=== PATIENT | female | born 1985 | race American Indian/Alaskan Native ===

== ENCOUNTER 2017-09-06 22:09 | Emergency (ER) | payer MEDICAID ==
[2017-09-07 00:47] VITALS: BP 122/58
--- NOTE | 2017-09-07 04:02 | Emergency Department Report ---
ED ENT HPI - General Chief complaint: Dental/Oral Stated complaint: TOOTHACHE Time Seen by Provider: 09/07/17 04:02 Source: patient Mode of arrival: Ambulatory Limitations: No Limitations - History of Present Illness Initial comments: 32-year-old -[place] female comes in reporting she 17th A gradient to her right ear with right side facial swelling onset 3 days ago. Patient reports that she was seen by her dentist on Monday and Monday on Monday they placed her on penicillin, ibuprofen 800 mg and Tylenol 3. Patient is followed by a close mouth in [place]. She reports that her dentist told her to come in to be evaluated. Patient reports that she is being scheduled for surgery to have her wisdom teeth taken out. She has no known drug allergies. No past medical history. MD complaint: tooth pain -: days(s) (3) Location: tooth # (32) Severity scale (0 -10): 8 Quality: aching Consistency: constant Improves with: none Worsens with: eating Associated Symptoms: gum swelling, toothache. denies: fever, cough, pain with swallowing, sore throat, tinnitus - Related Data Previous Rx's Medication Instructions Recorded Last Taken Type Acetaminophen/Codeine [Tylenol 1 tab PO Q6H PRN #15 tab 10/29/14 Unknown Rx /Codeine # 3 tab] Allergies Allergy/AdvReac Type Severity Reaction Status Date / Time No Known Allergies Allergy Verified 10/21/14 23:00 ED Dental HPI - General Chief complaint: Dental/Oral Stated complaint: TOOTHACHE Time Seen by Provider: 09/07/17 04:02 Source: patient Mode of arrival: Ambulatory Limitations: No Limitations - Related Data Previous Rx's Medication Instructions Recorded Last Taken Type Acetaminophen/Codeine [Tylenol 1 tab PO Q6H PRN #15 tab 10/29/14 Unknown Rx /Codeine # 3 tab] Allergies Allergy/AdvReac Type Severity Reaction Status Date / Time No Known Allergies Allergy Verified 10/21/14 23:00 ED Review of Systems ROS: Stated complaint: TOOTHACHE Other details as noted in HPI Constitutional: denies: chills, fever Eyes: denies: eye pain, eye discharge, vision change ENT: dental pain, other (right side facial swelling) Respiratory: denies: cough, shortness of breath, wheezing Cardiovascular: denies: chest pain, palpitations Endocrine: no symptoms reported Gastrointestinal: denies: abdominal pain, nausea, diarrhea Genitourinary: denies: urgency, dysuria, discharge Musculoskeletal: denies: back pain, joint swelling, arthralgia Skin: denies: rash, lesions Neurological: denies: headache, weakness, paresthesias Psychiatric: denies: anxiety, depression Hematological/Lymphatic: denies: easy bleeding, easy bruising ED Past Medical Hx - Past Medical History Previous Medical History?: Yes Hx Congestive Heart Failure: No Hx Diabetes: No Hx Sickle Cell Disease: No Hx Seizures: Yes (x1 age 4) Hx Kidney Stones: Yes (2009 stones passed) Hx Asthma: No Hx COPD: No - Surgical History Past Surgical History?: Yes Additional Surgical History: tubes tied. - Social History Smoking Status: Never Smoker Substance Use Type: None - Medications Home Medications: Home Medications Medication Instructions Recorded Confirmed Last Taken Type Acetaminophen/Codeine [Tylenol 1 tab PO Q6H PRN #15 tab 10/29/14 Unknown Rx /Codeine # 3 tab] ED Physical Exam - General Limitations: No Limitations General appearance: alert, in no apparent distress - Head Head exam: Present: atraumatic, normocephalic, other (right sided facial edema mostly in the right jaw) - Eye Eye exam: Present: normal appearance - Expanded ENT Exam Expanded Teeth exam: Present: dental tenderness # (32), gingival enlargement - Neck Neck exam: Present: normal inspection, full ROM - Respiratory Respiratory exam: Present: normal lung sounds bilaterally - Cardiovascular Cardiovascular Exam: Present: regular rate - Rectal Rectal exam: Present: deferred - Extremities Exam Extremities exam: Present: normal inspection - Back Exam Back exam: Present: normal inspection - Neurological Exam Neurological exam: Present: alert, oriented X3 - Psychiatric Psychiatric exam: Present: normal affect, normal mood - Skin Skin exam: Present: warm, dry, intact, normal color. Absent: rash ED Course Vital Signs 09/07/17 00:41 Temperature 99.4 F Pulse Rate 64 Respiratory 18 Rate Blood Pressure 122/58 O2 Sat by Pulse 98 Oximetry ED Medical Decision Making - Medical Decision Making Patient has been evaluated by this provider fast track. I discussed with patient that this is most likely due to her tooth pain. That she needs to continue with the penicillin and pain medication as prescribed by her dentist. I discussed the patient we will give her a Toradol injection. Follow-up with her dentist. Patient verbalized understanding. Critical care attestation.: If time is entered above; I have spent that time in minutes in the direct care of this critically ill patient, excluding procedure time. ED Disposition Clinical Impression: Pain, dental Disposition: DC-01 TO HOME OR SELFCARE Is pt being admited?: No Does the pt Need Aspirin: No Condition: Stable Instructions: Toothache (ED) Additional Instructions: Continue with pain medication antibiotic as prescribed by your dentist. Please follow up with her dentist if pain persist or gets worse. You can do warm salt water rinses. You can apply ice to the lower right jaw. Referrals: PRIMARY CARE, [Primary Care Provider] - 3-5 Days Forms: Work/School Release Form(ED)
[2017-09-07] MEDS ORDERED: TORADOL IM ONE (05:33)
== END 2017-09-07 05:50 | disposition home or self-care (01) ==
LOC: ED 22:09
DX: K08.89 Other specified disorders of teeth and supporting structures (principal)
CPT/HCPCS: 96372; 99282; J1885

== ENCOUNTER 2018-08-01 15:36 | Emergency (ER) | payer MEDICAID, OTHER ==
[2018-08-01 15:58] VITALS: BP 122/70
--- NOTE | 2018-08-01 16:00 | Emergency Department Report ---
Blank Doc - Documentation Documentation: C/O vomiting that started around 3 am. Has abd pain with one episode of diarrh ea. PMH none UTD Followed by [facility]. Postive sick contact. This initial assessment diagnostic orders/clinical plan/treatment (s) is/Are subject change based on patient's health status, clinical progression and re- assessment by fellow clinical providers in the ED. Further treatment and work-up at subsequent clinical providers discretion. Patient/guardians urged not to elope from s their condition may be serious if not clinically assessed and managed. Inital order include: Septic protocol
[2018-08-01 16:33] LABS: Basophils % (Auto) 0.1 % (0.0-1.8); Eosinophils % (Auto) 0.1 % (0.0-4.3); Hematocrit 39.2 % (30.3-42.9); Hemoglobin 13.4 gm/dl (10.1-14.3); Lymphocytes # (Auto) 0.7 K/mm3 (1.2-5.4); Lymphocytes % (Auto) 5.5 % (13.4-35.0); Mean Corpuscular HGB Conc 34 % (30-34); Mean Corpuscular Volume 94 fl (79-97); Monocytes # (Auto) 0.6 K/mm3 (0.0-0.8); Monocytes % (Auto) 4.6 % (0.0-7.3); Platelet Count 310 K/mm3 (140-440); Red Blood Count 4.19 M/mm3 (3.65-5.03); Red Cell Distribution Width 13.1 % (13.2-15.2)
[2018-08-01 16:57] LABS: Alanine Aminotransferase 25 units/L (7-56); Albumin 4.1 g/dL (3.9-5); BUN/Creatinine Ratio 23; Blood Urea Nitrogen 16 mg/dL (7-17); Calcium 8.8 mg/dL (8.4-10.2); Hemolysis Index 18
[2018-08-01] MEDS ORDERED: ZOFRAN IV STA (18:21)
[2018-08-01] MEDS ORDERED: NACL 0.9% 1000 ML 1,000 ML IV ONE ×2 (18:21→21:59)
--- NOTE | 2018-08-01 18:29 | Emergency Department Report ---
ED N/V/D HPI - General Chief complaint: Nausea/Vomiting/Diarrhea Stated complaint: VOMIT SINCE 3AM Time Seen by Provider: 08/01/18 15:53 Source: patient Mode of arrival: Ambulatory Limitations: No Limitations - History of Present Illness Initial comments: 33-year-old obese female to emergency department complaining of abdominal pain, nausea, vomiting that started on yesterday after eating at check[employer]. She her son and her daughter all ate from the same check[employer] and all had the same symptoms. Pain is dull aches, pains and cramps 2 to the abdomen. Associated frequent bouts of diarrhea and vomiting when trying to 2 drink or eat. No fever, chills, sweats, chest pain, palpitations, presyncope, neck pain, rashes. No trauma noted. MD complaint: nausea, vomiting, diarrhea -: Gradual Associated Abdominal Pain: No Location: diffuse Radiation: none Severity: mild Quality: cramping, aching Consistency: constant Improves with: none Worsens with: none Context: sick contacts Associated Symptoms: denies other symptoms, nausea/vomiting. denies: chest pain, cough, diaphoresis - Related Data Previous Rx's Medication Instructions Recorded Last Taken Type Acetaminophen/Codeine [Tylenol 1 tab PO Q6H PRN #15 tab 10/29/14 Unknown Rx /Codeine # 3 tab] hydrOXYzine HCL [Atarax] 25 mg PO Q6HR PRN #20 tablet 04/02/18 Unknown Rx predniSONE [Deltasone] 20 mg PO QDAY #5 tab 04/02/18 Unknown Rx Hyoscyamine Subl [Levsin Sl 0.125 0.125 mg SL Q4HR PRN #20 tablet 08/01/18 Unknown Rx TAB] Ondansetron [Zofran ODT TAB] 8 mg PO Q8HR #14 tab.rapdis 08/01/18 Unknown Rx Allergies Allergy/AdvReac Type Severity Reaction Status Date / Time No Known Allergies Allergy Verified 10/21/14 23:00 ED Review of Systems ROS: Stated complaint: VOMIT SINCE 3AM Other details as noted in HPI Constitutional: denies: chills, fever Eyes: denies: eye pain, eye discharge, vision change ENT: denies: ear pain, throat pain Respiratory: denies: cough, shortness of breath, wheezing Cardiovascular: denies: chest pain, palpitations Endocrine: no symptoms reported Gastrointestinal: nausea, vomiting, diarrhea. denies: abdominal pain Genitourinary: denies: urgency, dysuria, discharge Musculoskeletal: denies: back pain, joint swelling, arthralgia Skin: denies: rash, lesions Neurological: denies: headache, weakness, paresthesias Psychiatric: denies: anxiety, depression Hematological/Lymphatic: denies: easy bleeding, easy bruising ED Past Medical Hx - Past Medical History Hx Congestive Heart Failure: No Hx Diabetes: No Hx Sickle Cell Disease: No Hx Seizures: Yes (x1 age 4) Hx Kidney Stones: Yes (2009 stones passed) Hx Asthma: No Hx COPD: No - Surgical History Additional Surgical History: tubes tied. - Social History Smoking Status: Never Smoker Substance Use Type: None - Medications Home Medications: Home Medications Medication Instructions Recorded Confirmed Last Taken Type Acetaminophen/Codeine [Tylenol 1 tab PO Q6H PRN #15 tab 10/29/14 Unknown Rx /Codeine # 3 tab] hydrOXYzine HCL [Atarax] 25 mg PO Q6HR PRN #20 tablet 04/02/18 Unknown Rx predniSONE [Deltasone] 20 mg PO QDAY #5 tab 04/02/18 Unknown Rx Hyoscyamine Subl [Levsin Sl 0.125 0.125 mg SL Q4HR PRN #20 tablet 08/01/18 Unknown Rx TAB] Ondansetron [Zofran ODT TAB] 8 mg PO Q8HR #14 tab.rapdis 08/01/18 Unknown Rx ED Physical Exam - General Limitations: No Limitations General appearance: alert, in no apparent distress - Head Head exam: Present: atraumatic, normocephalic - Eye Eye exam: Present: normal appearance - ENT ENT exam: Present: mucous membranes moist - Neck Neck exam: Present: normal inspection - Respiratory Respiratory exam: Present: normal lung sounds bilaterally. Absent: respiratory distress - Cardiovascular Cardiovascular Exam: Present: regular rate, normal rhythm. Absent: systolic murmur, diastolic murmur, rubs, gallop - GI/Abdominal GI/Abdominal exam: Present: soft, tenderness (mild and general. ), normal bowel sounds. Absent: distended, guarding, rebound, rigid, organomegaly, mass, bruit, pulsatile mass, hernia - Extremities Exam Extremities exam: Present: normal inspection - Back Exam Back exam: Present: normal inspection - Neurological Exam Neurological exam: Present: alert, oriented X3 - Psychiatric Psychiatric exam: Present: normal affect, normal mood - Skin Skin exam: Present: warm, dry, intact, normal color. Absent: rash ED Course Vital Signs 08/01/18 08/01/18 08/01/18 15:54 18:34 18:49 Temperature 101.7 F H 101.1 F H Pulse Rate 122 H Respiratory 18 16 Rate Blood Pressure 122/70 O2 Sat by Pulse 100 Oximetry 08/01/18 21:21 Temperature 99.2 F Pulse Rate 118 H Respiratory 17 Rate Blood Pressure O2 Sat by Pulse 98 Oximetry ED Medical Decision Making - Lab Data Result diagrams: 08/01/18 16:13 08/01/18 16:13 - Medical Decision Making Miscellaneous disability since symptoms after having a check[employer] hamburger very likely that she does have some type of a contaminant involved in her 6 purse symptomology. Very likely to be of a viral viral ordered or even at adenovirus or norovirus virus. There is no bloody diarrhea and she appears to be very comfortable. Feels much better after the fluids and can tolerate orals. Advised her to continue to manage these symptoms and if it does continue outside of 3 days or she develops bloody stools or pain to return to the emergency department. Critical care attestation.: If time is entered above; I have spent that time in minutes in the direct care of this critically ill patient, excluding procedure time. ED Disposition Clinical Impression: Vomiting, Diarrhea Disposition: DC-01 TO HOME OR SELFCARE Is pt being admited?: No Does the pt Need Aspirin: No Condition: Stable Instructions: Gastroenteritis (ED), Food Poisoning (ED), Acute Nausea and Vomiting (ED) Prescriptions: Hyoscyamine Subl [Levsin Sl 0.125 TAB] 0.125 mg SL Q4HR PRN #20 tablet PRN Reason: Spasms Ondansetron [Zofran ODT TAB] 8 mg PO Q8HR #14 tab.terrence Referrals: [facility] VERONICA [Primary Care Provider] - 3-5 Days [facility] [Provider Group] - 3-5 Days
[2018-08-01 20:11] LABS: Bilirubin,Urine NEG (Negative); Blood,Urine NEG (Negative); Color,Urine Yellow (Yellow); Mucus,Urine FEW /HPF; Protein,Urine <15 mg/dL mg/dL (Negative)
[2018-08-01] MEDS ORDERED: NACL 0.9% 1000 ML 1,000 ML ONE (21:50)
[2018-08-01] MEDS ORDERED: TYLENOL ONE (21:58)
[2018-08-01] MEDS ORDERED: TYLENOL PO ONE (21:59)
== END 2018-08-01 23:55 | disposition home or self-care (01) ==
LOC: ED 15:36
DX: R10.84 Generalized abdominal pain (principal); R11.2 Nausea with vomiting, unspecified; R19.7 Diarrhea, unspecified
CPT/HCPCS: 36415; 80053; 81001; 85025; 86850; 86900; 86901; 96361; 96374; 99283; J2405; J7030

== ENCOUNTER 2018-08-08 17:18 | Emergency (ER) | payer OTHER ==
[2018-08-08 17:33] VITALS: BP 123/62
--- NOTE | 2018-08-08 17:33 | Emergency Department Report ---
Blank Doc - Documentation Documentation: This is a 33-year-old female that presents with abdominal pain in the umbilical area. Patient also stated abdominal distention. Denies any n/v. This initial assessment/diagnostic orders/clinical plan/treatment(s) is/are subject to change based on patient's health status, clinical progression and re- assessment by fellow clinical providers in the ED. Further treatment and workup at subsequent clinical providers discretion. Patient/guardians urged not to elope from the ED as their condition may be serious if not clinically assessed and managed. Initial orders include: 1- Patient sent to [facility] for further evaluation and treatment 2- Labs 3- UA
[2018-08-08 18:07] LABS: Basophils # (Auto) 0.1 K/mm3 (0.0-0.1); Basophils % (Auto) 0.7 % (0.0-1.8); Eosinophils # (Auto) 0.1 K/mm3 (0.0-0.4); Eosinophils % (Auto) 0.6 % (0.0-4.3); Hemoglobin 13.1 gm/dl (10.1-14.3); Lymphocytes # (Auto) 2.6 K/mm3 (1.2-5.4); Lymphocytes % (Auto) 21.8 % (13.4-35.0); Monocytes # (Auto) 0.7 K/mm3 (0.0-0.8); Monocytes % (Auto) 6.1 % (0.0-7.3)
[2018-08-08 18:11] LABS: Bilirubin,Urine NEG (Negative); Color,Urine Yellow (Yellow)
[2018-08-08 18:12] LABS: Amorphous Crystals,Urine Few; Bacteria,Urine 1+ /HPF (Negative); Blood,Urine NEG (Negative); Mucus,Urine FEW /HPF; Protein,Urine <15 mg/dL mg/dL (Negative)
[2018-08-08 18:20] LABS: HCG Qualitative,Urine Negative (Negative)
[2018-08-08 18:24] LABS: Hematocrit 39.4 % (30.3-42.9); Mean Corpuscular HGB Conc 33 % (30-34); Mean Corpuscular Volume 94 fl (79-97); Platelet Count 350 K/mm3 (140-440)
[2018-08-08 18:27] LABS: Alanine Aminotransferase 28 units/L (7-56); Albumin 4.2 g/dL (3.9-5); BUN/Creatinine Ratio 19; Blood Urea Nitrogen 13 mg/dL (7-17); Calcium 9.5 mg/dL (8.4-10.2); Hemolysis Index 4
[2018-08-08 18:28] LABS: Bilirubin,Direct < 0.2 mg/dL (0-0.2)
== END 2018-08-08 19:15 | disposition left against medical advice (07) ==
LOC: ED 17:18
DX: R10.33 Periumbilical pain (principal)
CPT/HCPCS: 36415; 80048; 80076; 81001; 81025; 83690; 85025

== ENCOUNTER 2019-03-26 17:30 | Emergency (ER) | payer MEDICAID, OTHER ==
--- NOTE | 2019-03-26 18:23 | Event Note ---
ED Screening Note Date of service: 03/26/19 Time: 18:22 ED Screening Note: This is a 33 y.o. F. that presents to the ER with right sided dental pain. Patient states she recently completed antibiotics and pain medication prescribed by dentist for dental abscess and wisdom tooth. States she have a follow up appointment with them on 04/11/2019 but can't tolerate the pain. This initial assessment/diagnostic orders/clinical plan/treatment(s) is/are subject to change based on patients health status, clinical progression and re- assessment by fellow clinical providers in the ED. Further treatment and workup at subsequent clinical providers discretion. Patient/guardian urged not to elope from the ED as their condition may be serious if not clinically assessed and managed. Initial orders include:
[2019-03-26] MEDS ORDERED: TORADOL IM ONE (19:45)
--- NOTE | 2019-03-26 19:48 | Emergency Department Report ---
ED ENT HPI - General Chief complaint: Dental/Oral Stated complaint: TOOTHACHE/FACE SWOLLEN Time Seen by Provider: 03/26/19 18:19 Source: patient Mode of arrival: Ambulatory Limitations: No Limitations - History of Present Illness Initial comments: 33-year-old female with right-sided toothache 2 weeks. Patient states she has seen a dentist, has been taking antibiotics for 2 weeks and has follow-up appointment have teeth pulled in 2 weeks, on April 11. She states she was given pain medication as well, however it is not helping. Patient denies fever. Patient requesting pain medication. MD complaint: tooth pain -: week(s) (2) Location: tooth # (30 and 32) Severity: moderate Quality: aching Consistency: constant Improves with: none Worsens with: eating, other (palpation) Context- Dental: history of dental caries, poor dental care Associated Symptoms: toothache. denies: fever, sore throat - Related Data Previous Rx's Medication Instructions Recorded Last Taken Type Acetaminophen/Codeine [Tylenol 1 tab PO Q6H PRN #15 tab 10/29/14 Unknown Rx /Codeine # 3 tab] hydrOXYzine HCL [Atarax] 25 mg PO Q6HR PRN #20 tablet 04/02/18 Unknown Rx predniSONE [Deltasone] 20 mg PO QDAY #5 tab 04/02/18 Unknown Rx Hyoscyamine Subl [Levsin Sl 0.125 0.125 mg SL Q4HR PRN #20 tablet 08/01/18 Unknown Rx TAB] Ondansetron [Zofran ODT TAB] 8 mg PO Q8HR #14 tab.rapdis 08/01/18 Unknown Rx Naproxen [Naprosyn] 500 mg PO BID #20 tablet 03/26/19 Unknown Rx traMADol [Ultram] 50 mg PO Q6HR PRN #7 tablet 03/26/19 Unknown Rx Allergies Allergy/AdvReac Type Severity Reaction Status Date / Time No Known Allergies Allergy Verified 10/21/14 23:00 ED Dental HPI - General Chief complaint: Dental/Oral Stated complaint: TOOTHACHE/FACE SWOLLEN Time Seen by Provider: 03/26/19 18:19 Source: patient Mode of arrival: Ambulatory Limitations: No Limitations - Related Data Previous Rx's Medication Instructions Recorded Last Taken Type Acetaminophen/Codeine [Tylenol 1 tab PO Q6H PRN #15 tab 10/29/14 Unknown Rx /Codeine # 3 tab] hydrOXYzine HCL [Atarax] 25 mg PO Q6HR PRN #20 tablet 04/02/18 Unknown Rx predniSONE [Deltasone] 20 mg PO QDAY #5 tab 04/02/18 Unknown Rx Hyoscyamine Subl [Levsin Sl 0.125 0.125 mg SL Q4HR PRN #20 tablet 08/01/18 Unknown Rx TAB] Ondansetron [Zofran ODT TAB] 8 mg PO Q8HR #14 tab.rapdis 08/01/18 Unknown Rx Naproxen [Naprosyn] 500 mg PO BID #20 tablet 03/26/19 Unknown Rx traMADol [Ultram] 50 mg PO Q6HR PRN #7 tablet 03/26/19 Unknown Rx Allergies Allergy/AdvReac Type Severity Reaction Status Date / Time No Known Allergies Allergy Verified 10/21/14 23:00 ED Review of Systems ROS: Stated complaint: TOOTHACHE/FACE SWOLLEN Other details as noted in HPI Comment: All other systems reviewed and negative Constitutional: denies: chills, fever ENT: dental pain. denies: throat pain Gastrointestinal: denies: vomiting ED Past Medical Hx - Past Medical History Previous Medical History?: Yes Hx Congestive Heart Failure: No Hx Diabetes: No Hx Sickle Cell Disease: No Hx Seizures: Yes (x1 age 4) Hx Kidney Stones: Yes (2009 stones passed) Hx Asthma: No Hx COPD: No - Surgical History Past Surgical History?: Yes Additional Surgical History: tubal ligation - Social History Smoking Status: Never Smoker Substance Use Type: None - Medications Home Medications: Home Medications Medication Instructions Recorded Confirmed Last Taken Type Acetaminophen/Codeine [Tylenol 1 tab PO Q6H PRN #15 tab 10/29/14 Unknown Rx /Codeine # 3 tab] hydrOXYzine HCL [Atarax] 25 mg PO Q6HR PRN #20 tablet 04/02/18 Unknown Rx predniSONE [Deltasone] 20 mg PO QDAY #5 tab 04/02/18 Unknown Rx Hyoscyamine Subl [Levsin Sl 0.125 0.125 mg SL Q4HR PRN #20 tablet 08/01/18 Unknown Rx TAB] Ondansetron [Zofran ODT TAB] 8 mg PO Q8HR #14 tab.rapdis 08/01/18 Unknown Rx Naproxen [Naprosyn] 500 mg PO BID #20 tablet 03/26/19 Unknown Rx traMADol [Ultram] 50 mg PO Q6HR PRN #7 tablet 03/26/19 Unknown Rx ED Physical Exam - General Limitations: No Limitations General appearance: alert, in no apparent distress - Head Head exam: Present: atraumatic, normocephalic - Eye Eye exam: Present: normal appearance - ENT ENT exam: Present: other (diffuse caries noted, teeth #30 and 32 tender to percussion; calm and slightly swollen adjacent to tooth #30; no significant facial swelling noted, no submental or submandibular induration present, no signs of Asif's angina present) - Neck Neck exam: Present: normal inspection. Absent: lymphadenopathy - Respiratory Respiratory exam: Present: normal lung sounds bilaterally. Absent: respiratory distress - Cardiovascular Cardiovascular Exam: Present: regular rate, normal rhythm - GI/Abdominal GI/Abdominal exam: Absent: distended - Extremities Exam Extremities exam: Present: normal inspection - Neurological Exam Neurological exam: Present: alert, oriented X3 - Psychiatric Psychiatric exam: Present: normal affect, normal mood - Skin Skin exam: Present: warm, dry, intact, normal color ED Course Vital Signs 03/26/19 17:44 Temperature 98.5 F Pulse Rate 81 Respiratory 16 Rate Blood Pressure 143/61 O2 Sat by Pulse 100 Oximetry ED Medical Decision Making - Medical Decision Making Vitals are normal. No signs of Asif angina present. Dental caries present on exam, teeth are tender to percussion. Patient has already been on a course of antibiotics. Toradol given here in ED. Patient advised to follow up with dentist as scheduled. Return precautions given. - Differential Diagnosis toothache, dental caries, periapical abscess Critical care attestation.: If time is entered above; I have spent that time in minutes in the direct care of this critically ill patient, excluding procedure time. ED Disposition Clinical Impression: Dentalgia Disposition: - TO HOME OR SELFCARE Is pt being admited?: No Condition: Stable Instructions: Dental Caries (ED), Toothache (ED) Referrals: [facility] [Outside] - 3-5 Days Time of Disposition: 19:51
[2019-03-26 20:41] VITALS: BP 130/88
== END 2019-03-26 20:41 | disposition home or self-care (01) ==
LOC: ED 17:30
DX: K08.89 Other specified disorders of teeth and supporting structures (principal); Z98.51 Tubal ligation status; Z79.899 Other long term (current) drug therapy
CPT/HCPCS: 96372; 99282; J1885

== ENCOUNTER 2020-05-15 21:47 | Emergency (ER) | payer MEDICAID ==
[2020-05-16] MEDS ORDERED: ACETAMINOPHEN 325 MG TAB PO ONE (04:39)
--- NOTE | 2020-05-16 04:54 | XRay Report ---
CHEST 2 VIEWS, 05/16/2020 3:40 AM INDICATION: Cough COMPARISON: None FINDINGS: Support devices: None. Heart: The cardiac silhouette is normal in size. Lungs/pleura: There is faint opacity at the left lateral lung base. The right lung appears grossly cl ear. Additional findings: No significant acute abnormality. IMPRESSION: 1. Faint opacity at the left lateral lung base concerning for a developing infiltrate. Signer Name: Anastasia Joseph MD Signed: 05/16/2020 4:49 AM Workstation Name: [id number]
[2020-05-16] MEDS ORDERED: cefTRIAXone/NS 1 GM/50 ML 1 GM/50 ML BAG IV ONE (05:03)
[2020-05-16] MEDS ORDERED: IBUPROFEN 600 MG TAB PO ONE (05:03)
[2020-05-16] MEDS ORDERED: AZITHROMYCIN 250 MG TAB PO ONE (05:03)
[2020-05-16] MEDS ORDERED: SODIUM CHLORIDE 0.9% 1000 ML 1,000 ML IV ONE (05:03)
[2020-05-16 05:26] LABS: Blood Urea Nitrogen 14 mg/dL (7-17); Calcium 8.8 mg/dL (8.4-10.2); Hemolysis Index 16
[2020-05-16 05:36] LABS: Alanine Aminotransferase 79 units/L (7-56); Albumin 4.2 g/dL (3.9-5)
[2020-05-16 05:38] LABS: BUN/Creatinine Ratio 20
[2020-05-16 05:38] LABS: Bilirubin,Direct < 0.2 mg/dL (0-0.2)
[2020-05-16 05:48] LABS: Basophils % (Auto) 0.1 % (0.0-1.8); Hematocrit 35.9 % (30.3-42.9); Hemoglobin 11.8 gm/dl (10.1-14.3); Lymphocytes # (Auto) 1.5 K/mm3 (1.2-5.4); Lymphocytes % (Auto) 20.7 % (13.4-35.0); Mean Corpuscular HGB Conc 33 % (30-34); Mean Corpuscular Volume 92 fl (79-97); Monocytes # (Auto) 0.7 K/mm3 (0.0-0.8); Monocytes % (Auto) 9.3 % (0.0-7.3); Platelet Count 237 K/mm3 (140-440); Red Cell Distribution Width 13.2 % (13.2-15.2)
--- NOTE | 2020-05-16 07:13 | Emergency Department Report ---
<LAKESHIA MONTEIRO - Last Filed: 05/16/20 07:09> - General Chief Complaint: Fever Stated Complaint: COUGH Source: patient Mode of arrival: Ambulatory Limitations: No Limitations - History of Present Illness Initial Comments: Patient is a 34-year-old -[place] female with a history of kidney stones and pediatric seizure who presents to the ED with complaint of acute onset persistent nasal and sinus congestion, persistent diffuse body aches and pains, persistent dry cough for the last 1 week. Patient also complains of subjective fever and chills for the last 24 hours. Patient states that her children have had similar symptoms. Patient states that she has been taking [id number] medications with no relief. Patient denies dizziness, syncope, chest pain, shortness of breath, nausea, vomiting, diarrhea, abdominal pain, back pain, dysuria, urinary frequency and urgency, change in vision, palpitations or seizures. MD Complaint: fever, cough, rhinorrhea, nasal congestion, sinus pain -: Sudden, week(s) (1) Severity: severe Severity scale (0 -10): 7 Quality: sharp, aching Consistency: constant Improves With: nothing Worsens With: nothing Context: sick contacts (Family members with similar symptoms but mild) Associated Symptoms: denies other symptoms, fever, chills, myalgias, headache, rhinorrhea, nasal congestion, cough. denies: stiff neck, chest pain, abdominal pain, nausea, diarrhea, dysuria, rash, confusion, right sweats, weight loss, epistaxis, ear pain, other Treatments Prior to Arrival: none - Related Data Previous Rx's Medication Instructions Recorded Last Taken Type Acetaminophen/Codeine [Tylenol 1 tab PO Q6H PRN #15 tab 10/29/14 Unknown Rx /Codeine # 3 tab] hydrOXYzine HCL [Atarax] 25 mg PO Q6HR PRN #20 tablet 04/02/18 Unknown Rx predniSONE [Deltasone] 20 mg PO QDAY #5 tab 04/02/18 Unknown Rx Hyoscyamine Subl [Levsin Sl 0.125 0.125 mg SL Q4HR PRN #20 tablet 08/01/18 Unknown Rx TAB] Ondansetron [Zofran ODT TAB] 8 mg PO Q8HR #14 tab.rapdis 08/01/18 Unknown Rx Naproxen [Naprosyn] 500 mg PO BID #20 tablet 03/26/19 Unknown Rx traMADoL [Ultram] 50 mg PO Q6HR PRN #7 tablet 03/26/19 Unknown Rx Acetaminophen [Tylenol] 500 mg PO Q6HR PRN #30 tablet 05/16/20 Unknown Rx Albuterol Sulfate [Proventil Hfa] 1 - 2 puff IH Q6H PRN #1 hfa.aer.ad 05/16/20 Unknown Rx Azithromycin [Zithromax Z-WES] 250 mg PO DAILY #6 tablet 05/16/20 Unknown Rx Benzonatate [Tessalon Perles] 100 mg PO Q8HR #30 capsule 05/16/20 Unknown Rx Sulfamethoxazole/Trimethoprim 1 each PO BID 5 Days #10 tablet 05/16/20 Unknown Rx [Bactrim DS TAB] methylPREDNISolone [Medrol 4MG 4 mg PO DAILY #21 tab.ds.pk 05/16/20 Unknown Rx DOSEPAK (21 tabs)] Allergies Allergy/AdvReac Type Severity Reaction Status Date / Time No Known Allergies Allergy Verified 10/21/14 23:00 ED Review of Systems Constitutional: chills, fever, malaise Eyes: denies: eye pain, eye discharge, vision change ENT: congestion. denies: ear pain, throat pain Respiratory: cough. denies: shortness of breath, wheezing Cardiovascular: denies: chest pain, palpitations Endocrine: no symptoms reported Gastrointestinal: denies: abdominal pain, nausea, vomiting, diarrhea Genitourinary: denies: urgency, dysuria, discharge Musculoskeletal: arthralgia, myalgia. denies: back pain, joint swelling Skin: denies: rash, lesions Neurological: headache. denies: weakness, paresthesias Psychiatric: denies: anxiety, depression Hematological/Lymphatic: denies: easy bleeding, easy bruising ED Past Medical Hx - Past Medical History Previous Medical History?: Yes Hx Congestive Heart Failure: No Hx Diabetes: No Hx Sickle Cell Disease: No Hx Seizures: Yes (x1 age 4) Hx Kidney Stones: Yes (2009 stones passed) Hx Asthma: No Hx COPD: No - Surgical History Past Surgical History?: Yes Additional Surgical History: tubal ligation - Social History Smoking Status: Never Smoker Substance Use Type: Alcohol - Medications Home Medications: Home Medications Medication Instructions Recorded Confirmed Last Taken Type Acetaminophen/Codeine [Tylenol 1 tab PO Q6H PRN #15 tab 10/29/14 Unknown Rx /Codeine # 3 tab] hydrOXYzine HCL [Atarax] 25 mg PO Q6HR PRN #20 tablet 04/02/18 Unknown Rx predniSONE [Deltasone] 20 mg PO QDAY #5 tab 04/02/18 Unknown Rx Hyoscyamine Subl [Levsin Sl 0.125 0.125 mg SL Q4HR PRN #20 tablet 08/01/18 Unknown Rx TAB] Ondansetron [Zofran ODT TAB] 8 mg PO Q8HR #14 tab.rapdis 08/01/18 Unknown Rx Naproxen [Naprosyn] 500 mg PO BID #20 tablet 03/26/19 Unknown Rx traMADoL [Ultram] 50 mg PO Q6HR PRN #7 tablet 03/26/19 Unknown Rx Acetaminophen [Tylenol] 500 mg PO Q6HR PRN #30 tablet 05/16/20 Unknown Rx Albuterol Sulfate [Proventil Hfa] 1 - 2 puff IH Q6H PRN #1 hfa.aer.ad 05/16/20 Unknown Rx Azithromycin [Zithromax Z-WES] 250 mg PO DAILY #6 tablet 05/16/20 Unknown Rx Benzonatate [Tessalon Perles] 100 mg PO Q8HR #30 capsule 05/16/20 Unknown Rx Sulfamethoxazole/Trimethoprim 1 each PO BID 5 Days #10 tablet 05/16/20 Unknown Rx [Bactrim DS TAB] methylPREDNISolone [Medrol 4MG 4 mg PO DAILY #21 tab.ds.pk 05/16/20 Unknown Rx DOSEPAK (21 tabs)] ED Physical Exam - General Limitations: No Limitations General appearance: alert, in no apparent distress, other (Febrile and tachycardic) - Head Head exam: Present: atraumatic, normocephalic, normal inspection - Eye Eye exam: Present: normal appearance, PERRL, EOMI Pupils: Present: normal accommodation - ENT ENT exam: Present: normal orophraynx, mucous membranes moist, TM's normal bilaterally, normal external ear exam, other (Grossly congested nasal passages, palpable frontal sinus tenderness) - Neck Neck exam: Present: normal inspection, full ROM - Respiratory Respiratory exam: Present: rales (Left lower lobe), rhonchi (Left lower lobe). Absent: respiratory distress, wheezes, stridor, chest wall tenderness, accessory muscle use, decreased breath sounds, prolonged expiratory - Cardiovascular Cardiovascular Exam: Present: normal rhythm, tachycardia. Absent: systolic murmur, diastolic murmur, rubs, gallop - GI/Abdominal GI/Abdominal exam: Present: soft, normal bowel sounds. Absent: tenderness, guarding, rebound, hyperactive bowel sounds, hypoactive bowel sounds, organomegaly - Extremities Exam Extremities exam: Present: normal inspection, full ROM, normal capillary refill - Back Exam Back exam: Present: normal inspection, full ROM. Absent: tenderness, CVA tenderness (R), CVA tenderness (L), muscle spasm, paraspinal tenderness, vertebral tenderness - Neurological Exam Neurological exam: Present: alert, oriented X3, CN II-XII intact, normal gait, reflexes normal - Psychiatric Psychiatric exam: Present: normal affect, normal mood - Skin Skin exam: Present: warm, dry, intact, normal color. Absent: rash ED Medical Decision Making - Lab Data Result diagrams: 05/16/20 04:37 05/16/20 04:37 - Radiology Data Radiology results: report reviewed, image reviewed Findings [address] [address] XRay Report Signed Patient: FITZ CHRISTIANSON MR#: [id number] : 1985 Acct:[id number] Age/Sex: 34 / F ADM Date: 05/15/20 Loc: ED Attending Dr: Ordering Physician: CONRADO MARLEY MD Date of Service: 05/16/20 Procedure(s): XR chest routine 2V Accession Number(s): [id number] cc: ED MD AYAKA Fluoro Time In Minutes: CHEST 2 VIEWS, 05/16/2020 3:40 AM INDICATION: Cough COMPARISON: None FINDINGS: Support devices: None. Heart: The cardiac silhouette is normal in size. Lungs/pleura: There is faint opacity at the left lateral lung base. The right lung appears grossly clear. Additional findings: No significant acute abnormality. IMPRESSION: 1. Faint opacity at the left lateral lung base concerning for a developing in filtrate. Signer Name: Anastasia Joseph MD Signed: 05/16/2020 4:49 AM Workstation Name: [id number] Transcribed By: EB Dictated By: Anastasia Joseph MD Electronically Authenticated By: Anastasia Joseph MD Signed Date/Time: 05/16/20448 DD/ 7 TD/TT: - Medical Decision Making This is a 34-year-old -Q[place] female with a history of kidney stones and pediatric seizure who presents to the ED with complaint of acute onset pers istent nasal and sinus congestion, persistent diffuse body aches and pains, persistent dry cough for the last 1 week. Patient also complains of subjective fever and chills for the last 24 hours. Patient states that her children have had similar symptoms. Patient states that she has been taking [id number]-[id number]-[id number] medications with no relief. In the ED, patient is alert and oriented x3 and is not in distress but tachycardic and febrile in triage. Patient was treated for fever in the ED and chest x-ray shows a faint opacity at the left lateral lung base concerning for a developing infiltrate. Lab test results were reviewed and are all nonactionable except for transaminitis of ALT 79 and AST 62. Urinalysis and rapid strep and influenza tests are pending. Patient was treated for community-acquired pneumonia in the ED initially with Rocephin 1 g IV x1 and azithromycin 500 mg p.o. x1. On reevaluation, patient's tachycardia and fever resolved with medications. Patient care was transferred to Ms. Quincy Byrd NP at shift change at 0700 hrs. She shall review all lab test results and dis position the patient appropriately. - Differential Diagnosis Pneumonia; bronchitis; URI; influenza; COVID-19; strep pharyngitis; UTI ED Disposition Clinical Impression: Fever and chills, Community acquired pneumonia of left lower lobe of lung, Acute upper respiratory infection, Left lower lobe pulmonary infiltrate UTI (urinary tract infection) Qualifiers: Urinary tract infection type: acute cystitis Hematuria presence: with hematuria Qualified Code(s): N30.01 - Acute cystitis with hematuria Disposition: TO HOME OR SELFCARE Is pt being admited?: No Does the pt Need Aspirin: No Condition: Stable Instructions: Cough, Adult, Khis-gp-Odxv, Urinary Tract Infection, Adult, Ghfp-sd-Aefq, Upper Respiratory Infection, Adult, Unbh-nn-Ywap, Fever, Adult, Cvvo-kh-Uiyh, Community-Acquired Pneumonia, Adult, Uofm-ym-Jyfu, Bacterial Pneumonia (ED) Additional Instructions: Lab test results were reviewed and are all nonactionable except for slightly elevated transaminitis. Chest x-ray shows left lower lobe infiltrate consistent with community-acquired pneumonia. Therefore take medications with food, drink plenty of fluids and follow-up with your primary care physician in 5 to 7 days for reevaluation. Return to the ED immediately if symptoms get worse. Also consider getting a Covid test refer to the pamphlet with areas that she can get Covid testing Prescriptions: Acetaminophen [Tylenol] 500 mg PO Q6HR PRN #30 tablet PRN Reason: Pain , Severe (7-10) Sulfamethoxazole/Trimethoprim [Bactrim DS TAB] 1 each PO BID 5 Days #10 tablet methylPREDNISolone [Medrol 4MG DOSEPAK (21 tabs)] 4 mg PO DAILY #21 tab.ds.pk Albuterol Sulfate [Proventil Hfa] 1 - 2 puff IH Q6H PRN #1 hfa.aer.ad PRN Reason: Dyspnea Benzonatate [Tessalon Perles] 100 mg PO Q8HR #30 capsule Azithromycin [Zithromax Z-WES] 250 mg PO DAILY #6 tablet Referrals: [facility] [Provider Group] - 3-5 Days YANDEL JEREZ MD [Staff Physician] - 3-5 Days Time of Disposition: 07:19 Print Language: MALTESE <QUINCY BYRD - Last Filed: 05/16/20 08:48> ED Review of Systems ROS: Stated complaint: COUGH Other details as noted in HPI ED Course Vital Signs 05/16/20 04:01 Temperature 102.2 F H Pulse Rate 115 H Respiratory 16 Rate Blood Pressure 112/70 O2 Sat by Pulse 98 Oximetry ED Medical Decision Making - Lab Data Result diagrams: 05/16/20 04:37 05/16/20 04:37 Critical care attestation.: If time is entered above; I have spent that time in minutes in the direct care of this critically ill patient, excluding procedure time. ED Disposition Is pt being admited?: No Does the pt Need Aspirin: No Time of Disposition: 08:46
[2020-05-16 08:23] LABS: Bacteria,Urine 1+ /HPF (Negative); Bilirubin,Urine NEG (Negative); Blood,Urine MOD (Negative); Color,Urine Amber (Yellow); Mucus,Urine 3+ /HPF
[2020-05-16 08:32] LABS: HCG Qualitative,Urine Negative (Negative)
[2020-05-16 09:08] VITALS: BP 107/65
== END 2020-05-16 09:08 | disposition home or self-care (01) ==
LOC: ED 21:47
DX: N39.0 Urinary tract infection, site not specified (principal); R91.8 Other nonspecific abnormal finding of lung field; J06.9 Acute upper respiratory infection, unspecified; J18.9 Pneumonia, unspecified organism; R50.9 Fever, unspecified; R56.9 Unspecified convulsions; Z98.51 Tubal ligation status; Z79.2 Long term (current) use of antibiotics; Z79.899 Other long term (current) drug therapy
CPT/HCPCS: 36415; 71046; 80048; 80076; 81001; 81025; 85025; 87086; 87400; 96365; 99284; J0696; J7030; 80320; G0480

== ENCOUNTER 2020-10-24 12:43 | Emergency (ER) | payer MEDICAID ==
[2020-10-24 13:32] VITALS: BP 146/86
[2020-10-24] MEDS ORDERED: FLUORESCEIN 1 MG STRIP OP ONE (13:34)
[2020-10-24] MEDS ORDERED: TETRACAINE 0.5% OPHTH SOLN 4ML OD ONE (13:34)
[2020-10-24] MEDS ORDERED: diphenhydrAMINE 25 MG CAP PO ONE (13:57)
--- NOTE | 2020-10-24 14:01 | Emergency Department Report ---
ED Eye Problem HPI - General Chief complaint: Eye Problems Stated complaint: SWOLLEN RIGHT EYE Time Seen by Provider: 10/24/20 13:33 Source: patient Mode of arrival: Ambulatory Limitations: No Limitations - History of Present Illness Initial comments: 35-year-old female complaining of her right eyelid swollen symptoms started yesterday. 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 She accidentally caused a scratch to the right mid upper lid. Since then her eye has become progressively swollen she denies pain just heaviness. This morning she woke up her eyes matted with discharge. She denies blurry or double vision he does not recall any object getting in her eye. She denies any trauma to her eyes her past medical history is of gallstones chief complaint: eye redness (Upper eyelids swollen), other (Mucoid discharge from her right eye) Location: right eye Place: home Eye Symptoms: redness, discharge, other (Eyelid swollen) Severity: moderate If Pain, Quality: other (Hip constant heaviness) Consistency: constant Associated Symptoms: none - Related Data Previous Rx's Medication Instructions Recorded Last Taken Type Acetaminophen/Codeine [Tylenol 1 tab PO Q6H PRN #15 tab 10/29/14 Unknown Rx /Codeine # 3 tab] hydrOXYzine HCL [Atarax] 25 mg PO Q6HR PRN #20 tablet 04/02/18 Unknown Rx predniSONE [Deltasone] 20 mg PO QDAY #5 tab 04/02/18 Unknown Rx Hyoscyamine Subl [Levsin Sl 0.125 0.125 mg SL Q4HR PRN #20 tablet 08/01/18 Unknown Rx TAB] Ondansetron [Zofran ODT TAB] 8 mg PO Q8HR #14 tab.rapdis 08/01/18 Unknown Rx Naproxen [Naprosyn] 500 mg PO BID #20 tablet 03/26/19 Unknown Rx traMADoL [Ultram] 50 mg PO Q6HR PRN #7 tablet 03/26/19 Unknown Rx Acetaminophen [Tylenol] 500 mg PO Q6HR PRN #30 tablet 05/16/20 Unknown Rx Albuterol Sulfate [Proventil Hfa] 1 - 2 puff IH Q6H PRN #1 hfa.aer.ad 05/16/20 Unknown Rx Azithromycin [Zithromax Z-WES] 250 mg PO DAILY #6 tablet 05/16/20 Unknown Rx Benzonatate [Tessalon Perles] 100 mg PO Q8HR #30 capsule 05/16/20 Unknown Rx Sulfamethoxazole/Trimethoprim 1 each PO BID 5 Days #10 tablet 05/16/20 Unknown Rx [Bactrim DS TAB] methylPREDNISolone [Medrol 4MG 4 mg PO DAILY #21 tab.ds.pk 05/16/20 Unknown Rx DOSEPAK (21 tabs)] Gentamicin 0.3% Ophth Oint 1 applicatio OP Q4H #1 tube 10/24/20 Unknown Rx Allergies Allergy/AdvReac Type Severity Reaction Status Date / Time No Known Allergies Allergy Verified 10/21/14 23:00 ED Review of Systems ROS: Stated complaint: SWOLLEN RIGHT EYE Other details as noted in HPI Comment: All other systems reviewed and negative Constitutional: no symptoms reported Eyes: eye discharge, other (Eyelid heaviness). denies: eye pain, vision change Respiratory: no symptoms reported. denies: cough, shortness of breath, SOB with exertion Cardiovascular: denies: chest pain, palpitations Endocrine: no symptoms reported Gastrointestinal: denies: abdominal pain, nausea, vomiting, diarrhea, constipation, hematemesis Neurological: denies: headache, weakness, numbness, paresthesias, confusion Psychiatric: denies: anxiety, depression, auditory hallucinations, visual hallucinations, homicidal thoughts Hematological/Lymphatic: denies: easy bleeding, easy bruising, swollen glands ED Past Medical Hx - Past Medical History Previous Medical History?: Yes Hx Congestive Heart Failure: No Hx Diabetes: No Hx Sickle Cell Disease: No Hx Seizures: Yes (x1 age 4) Hx Kidney Stones: Yes (2009 stones passed) Hx Asthma: No Hx COPD: No - Surgical History Past Surgical History?: Yes Additional Surgical History: tubal ligation - Social History Smoking Status: Never Smoker Substance Use Type: None - Medications Home Medications: Home Medications Medication Instructions Recorded Confirmed Last Taken Type Acetaminophen/Codeine [Tylenol 1 tab PO Q6H PRN #15 tab 10/29/14 Unknown Rx /Codeine # 3 tab] hydrOXYzine HCL [Atarax] 25 mg PO Q6HR PRN #20 tablet 04/02/18 Unknown Rx predniSONE [Deltasone] 20 mg PO QDAY #5 tab 04/02/18 Unknown Rx Hyoscyamine Subl [Levsin Sl 0.125 0.125 mg SL Q4HR PRN #20 tablet 08/01/18 Unknown Rx TAB] Ondansetron [Zofran ODT TAB] 8 mg PO Q8HR #14 tab.rapdis 08/01/18 Unknown Rx Naproxen [Naprosyn] 500 mg PO BID #20 tablet 03/26/19 Unknown Rx traMADoL [Ultram] 50 mg PO Q6HR PRN #7 tablet 03/26/19 Unknown Rx Acetaminophen [Tylenol] 500 mg PO Q6HR PRN #30 tablet 05/16/20 Unknown Rx Albuterol Sulfate [Proventil Hfa] 1 - 2 puff IH Q6H PRN #1 hfa.aer.ad 05/16/20 Unknown Rx Azithromycin [Zithromax Z-WES] 250 mg PO DAILY #6 tablet 05/16/20 Unknown Rx Benzonatate [Tessalon Perles] 100 mg PO Q8HR #30 capsule 05/16/20 Unknown Rx Sulfamethoxazole/Trimethoprim 1 each PO BID 5 Days #10 tablet 05/16/20 Unknown Rx [Bactrim DS TAB] methylPREDNISolone [Medrol 4MG 4 mg PO DAILY #21 tab.ds.pk 05/16/20 Unknown Rx DOSEPAK (21 tabs)] Gentamicin 0.3% Ophth Oint 1 applicatio OP Q4H #1 tube 10/24/20 Unknown Rx ED Physical Exam - General Limitations: No Limitations General appearance: alert, in no apparent distress - Head Head exam: Present: atraumatic - Eye Eye exam: Present: periorbital swelling, other (Upper eyelid swollen mucoid discharge from the right eye) Pupils: Present: normal accommodation - ENT ENT exam: Present: normal exam - Neck Neck exam: Present: normal inspection - Respiratory Respiratory exam: Present: normal lung sounds bilaterally. Absent: respiratory distress - Cardiovascular Cardiovascular Exam: Present: regular rate - Extremities Exam Extremities exam: Present: normal inspection - Neurological Exam Neurological exam: Present: alert, oriented X3 - Psychiatric Psychiatric exam: Present: normal affect - Skin Skin exam: Present: warm, other (Abrasion noted to the upper eyelid) ED Course Vital Signs 10/24/20 13:29 Temperature 99.0 F Pulse Rate 87 Respiratory 20 Rate Blood Pressure 146/86 O2 Sat by Pulse 100 Oximetry - Reevaluation(s) Reevaluation #1: 10/24/20 14:04 Patient I examined 1 drop of tetracaine to the right eye stained with fluorescein strip and Heredia lamp used to assess her eye no signs of corneal abrasion. Patient tolerated well Critical care attestation.: If time is entered above; I have spent that time in minutes in the direct care of this critically ill patient, excluding procedure time. ED Disposition Clinical Impression: Conjunctivitis Qualifiers: Conjunctivitis type: acute Acute conjunctivitis type: bacterial Laterality: right Qualified Code(s): H10.31 - Unspecified acute conjunctivitis, right eye Abrasion of eyelid, right Qualifiers: Encounter type: initial encounter Qualified Code(s): S00.211A - Abrasion of right eyelid and periocular area, initial encounter Disposition: TO HOME OR SELFCARE Is pt being admited?: No Does the pt Need Aspirin: No Condition: Stable Instructions: How to Use Eye Drops and Eye Ointments, Bacterial Conjunctivitis, Adult, Poct-lh-Iute Additional Instructions: Apply cool compress to your eye on for 15 minutes then off. Apply cool compresses at least 3 times daily keep face clean with soap and water. Use eyedrops as prescribed. Take antihistamine such as Benadryl 2 tablets every 4 hours as needed for itching or swelling or you may take Claritin or Zyrtec 1 tablet daily as directed by package insert. Follow-up with an eye doctor on Monday. Return to the emergency room immediately if you develop difficulty seeing or any loss of vision or any worsening symptoms. You can choose eye doctor of your choice or call [facility] call [phone] Prescriptions: Gentamicin 0.3% Ophth Oint 1 applicatio OP Q4H #1 tube Referrals: ELLA SILVA MD [Staff Physician] - 3-5 Days Time of Disposition: 14:15
== END 2020-10-24 15:01 | disposition home or self-care (01) ==
LOC: ED 12:43
DX: S00.211A Abrasion of right eyelid and periocular area, initial encounter (principal); R56.9 Unspecified convulsions; Z98.51 Tubal ligation status; Z79.2 Long term (current) use of antibiotics; Z79.899 Other long term (current) drug therapy; H10.9 Unspecified conjunctivitis; X58.XXXA Exposure to other specified factors, initial encounter; Y93.89 Activity, other specified; Y92.89 Other specified places as the place of occurrence of the external cause; Y99.8 Other external cause status
CPT/HCPCS: 99283

== ENCOUNTER 2020-10-25 11:51 | Emergency (ER) | payer MEDICAID ==
[2020-10-25] MEDS ORDERED: ACETAMINOPHEN W/CODEINE 300-30 MG TAB PO ONE (12:20)
--- NOTE | 2020-10-25 12:21 | Emergency Department Report ---
ED General Adult HPI - General Chief complaint: Eye Problems Stated complaint: RIGHT EYE SWOLLEN Time Seen by Provider: 10/25/20 12:14 Source: patient Mode of arrival: Ambulatory Limitations: No Limitations - History of Present Illness MD Complaint: Left sided pain and left sided MOTT -: Gradual ( yesterday ) - Related Data Previous Rx's Medication Instructions Recorded Last Taken Type Acetaminophen/Codeine [Tylenol 1 tab PO Q6H PRN #15 tab 10/29/14 Unknown Rx /Codeine # 3 tab] hydrOXYzine HCL [Atarax] 25 mg PO Q6HR PRN #20 tablet 04/02/18 Unknown Rx predniSONE [Deltasone] 20 mg PO QDAY #5 tab 04/02/18 Unknown Rx Hyoscyamine Subl [Levsin Sl 0.125 0.125 mg SL Q4HR PRN #20 tablet 08/01/18 Unknown Rx TAB] Ondansetron [Zofran ODT TAB] 8 mg PO Q8HR #14 tab.rapdis 08/01/18 Unknown Rx Naproxen [Naprosyn] 500 mg PO BID #20 tablet 03/26/19 Unknown Rx traMADoL [Ultram] 50 mg PO Q6HR PRN #7 tablet 03/26/19 Unknown Rx Acetaminophen [Tylenol] 500 mg PO Q6HR PRN #30 tablet 05/16/20 Unknown Rx Albuterol Sulfate [Proventil Hfa] 1 - 2 puff IH Q6H PRN #1 hfa.aer.ad 05/16/20 Unknown Rx Azithromycin [Zithromax Z-WES] 250 mg PO DAILY #6 tablet 05/16/20 Unknown Rx Benzonatate [Tessalon Perles] 100 mg PO Q8HR #30 capsule 05/16/20 Unknown Rx Sulfamethoxazole/Trimethoprim 1 each PO BID 5 Days #10 tablet 05/16/20 Unknown Rx [Bactrim DS TAB] methylPREDNISolone [Medrol 4MG 4 mg PO DAILY #21 tab.ds.pk 05/16/20 Unknown Rx DOSEPAK (21 tabs)] Gentamicin 0.3% Ophth Oint 1 applicatio OP Q4H #1 tube 10/24/20 Unknown Rx Allergies Allergy/AdvReac Type Severity Reaction Status Date / Time No Known Allergies Allergy Verified 10/21/14 23:00 ED Review of Systems ROS: Stated complaint: RIGHT EYE SWOLLEN Other details as noted in HPI ED Past Medical Hx - Past Medical History Hx Congestive Heart Failure: No Hx Diabetes: No Hx Sickle Cell Disease: No Hx Seizures: Yes (x1 age 4) Hx Kidney Stones: Yes (2009 stones passed) Hx Asthma: No Hx COPD: No - Surgical History Additional Surgical History: tubal ligation - Social History Smoking Status: Never Smoker Substance Use Type: None - Medications Home Medications: Home Medications Medication Instructions Recorded Confirmed Last Taken Type Acetaminophen/Codeine [Tylenol 1 tab PO Q6H PRN #15 tab 10/29/14 Unknown Rx /Codeine # 3 tab] hydrOXYzine HCL [Atarax] 25 mg PO Q6HR PRN #20 tablet 04/02/18 Unknown Rx predniSONE [Deltasone] 20 mg PO QDAY #5 tab 04/02/18 Unknown Rx Hyoscyamine Subl [Levsin Sl 0.125 0.125 mg SL Q4HR PRN #20 tablet 08/01/18 Unknown Rx TAB] Ondansetron [Zofran ODT TAB] 8 mg PO Q8HR #14 tab.rapdis 08/01/18 Unknown Rx Naproxen [Naprosyn] 500 mg PO BID #20 tablet 03/26/19 Unknown Rx traMADoL [Ultram] 50 mg PO Q6HR PRN #7 tablet 03/26/19 Unknown Rx Acetaminophen [Tylenol] 500 mg PO Q6HR PRN #30 tablet 05/16/20 Unknown Rx Albuterol Sulfate [Proventil Hfa] 1 - 2 puff IH Q6H PRN #1 hfa.aer.ad 05/16/20 Unknown Rx Azithromycin [Zithromax Z-WES] 250 mg PO DAILY #6 tablet 05/16/20 Unknown Rx Benzonatate [Tessalon Perles] 100 mg PO Q8HR #30 capsule 05/16/20 Unknown Rx Sulfamethoxazole/Trimethoprim 1 each PO BID 5 Days #10 tablet 05/16/20 Unknown Rx [Bactrim DS TAB] methylPREDNISolone [Medrol 4MG 4 mg PO DAILY #21 tab.ds.pk 05/16/20 Unknown Rx DOSEPAK (21 tabs)] Gentamicin 0.3% Ophth Oint 1 applicatio OP Q4H #1 tube 10/24/20 Unknown Rx ED Physical Exam - General Limitations: No Limitations Critical care attestation.: If time is entered above; I have spent that time in minutes in the direct care of this critically ill patient, excluding procedure time. ED Disposition Condition: Stable
[2020-10-25 12:36] VITALS: BP 150/90
[2020-10-25] MEDS ORDERED: SULFAMETHOXAZOLE/TRIMETHOPRIM 800/160MG DS TAB PO ONE (12:41)
[2020-10-25] MEDS ORDERED: cephALEXin 500 MG CAP PO ONE (12:41)
[2020-10-25] MEDS ORDERED: predniSONE 20 MG TAB PO ONE (12:41)
--- NOTE | 2020-10-25 12:42 | Event Note ---
Face to Face: For this encounter I have reviewed the PA/SEBD TEACHER documentation, treatment plan, medical decision making, and I had face to face time with this patient. I evaluated patient: Patient has periorbital cellulitis with small skin avulsion. No involvement of the globe. I recommended prednisone, cephalexin, Bactrim and ice therapy.
--- NOTE | 2020-10-25 12:47 | Emergency Department Report ---
ED Eye Problem HPI - General Chief complaint: Eye Problems Stated complaint: RIGHT EYE SWOLLEN Time Seen by Provider: 10/25/20 12:14 Source: patient Mode of arrival: Ambulatory Limitations: No Limitations - History of Present Illness Initial comments: 35-year-old female presents to the ER today with complaints of right eye swelling and redness. Patient states that about 3 days ago she was trying to put on false eyelashes and in the process glue got on her eyelids and into her eye. She states that in the process of trying to remove the glue, and the eyelash she accidentally scratched her right upper lid. She states since then she has been having increasing swelling, redness and discomfort around the right eye. She was seen in the ER yesterday for her symptoms. According to the providers note she had a Heredia lamp exam which showed no corneal abrasion. It was noted that she had an abrasion to her right upper lid. She was diagnosed with conjunctivitis and prescribed gentamicin eyedrops. Patient states that she was hoping that her symptoms would be much better today, but when she woke up and noticed that she still had some redness and swelling around the eyes she decided to check back in. She denies any vision changes currently. She reports some watery drainage from the eye but otherwise no matting or crusting or pus drainage. She denies any pain to the eyeball or to her eyelids. chief complaint: other ([place]-orbital redness and swelling ) -: days(s) (3) - Related Data Previous Rx's Medication Instructions Recorded Last Taken Type Gentamicin 0.3% Ophth Oint 1 applicatio OP Q4H #1 tube 10/24/20 Unknown Rx Sulfamethoxazole/Trimethoprim 1 each PO BID #14 tablet 10/25/20 Unknown Rx [Bactrim DS TAB] cephALEXin [Keflex] 500 mg PO Q6HR #40 capsule 10/25/20 Unknown Rx predniSONE [Deltasone] 50 mg PO QDAY #4 tab 10/25/20 Unknown Rx Allergies Allergy/AdvReac Type Severity Reaction Status Date / Time No Known Allergies Allergy Verified 10/21/14 23:00 ED Review of Systems ROS: Stated complaint: RIGHT EYE SWOLLEN Other details as noted in HPI Comment: All other systems reviewed and negative Constitutional: denies: chills, fever Eyes: eye pain, eye discharge, other (Periorbital swelling and redness). denies: vision change ENT: denies: ear pain, throat pain, dental pain, hearing loss, epistaxis, congestion Respiratory: denies: cough, shortness of breath, SOB with exertion, SOB at rest, wheezing Cardiovascular: denies: chest pain, palpitations, dyspnea on exertion, edema, syncope, paroxysmal nocturnal dyspnea Gastrointestinal: denies: abdominal pain, nausea, diarrhea, constipation, hematemesis, hematochezia Genitourinary: denies: urgency, dysuria, frequency, hematuria, discharge, abnormal menses, dyspareunia Musculoskeletal: denies: back pain, joint swelling, arthralgia Neurological: denies: headache, weakness, numbness, paresthesias, confusion, abnormal gait, vertigo Psychiatric: as per HPI. denies: anxiety, depression, homicidal thoughts, suicidal thoughts Hematological/Lymphatic: denies: easy bleeding, easy bruising ED Past Medical Hx - Past Medical History Previous Medical History?: Yes Hx Congestive Heart Failure: No Hx Diabetes: No Hx Sickle Cell Disease: No Hx Seizures: Yes (x1 age 4) Hx Kidney Stones: Yes (2009 stones passed) Hx Asthma: No Hx COPD: No Additional medical history: right eye irritation - Surgical History Past Surgical History?: Yes Additional Surgical History: tubal ligation - Social History Smoking Status: Never Smoker Substance Use Type: None - Medications Home Medications: Home Medications Medication Instructions Recorded Confirmed Last Taken Type Gentamicin 0.3% Ophth Oint 1 applicatio OP Q4H #1 tube 10/24/20 Unknown Rx Sulfamethoxazole/Trimethoprim 1 each PO BID #14 tablet 10/25/20 Unknown Rx [Bactrim DS TAB] cephALEXin [Keflex] 500 mg PO Q6HR #40 capsule 10/25/20 Unknown Rx predniSONE [Deltasone] 50 mg PO QDAY #4 tab 10/25/20 Unknown Rx ED Physical Exam - General Limitations: No Limitations General appearance: alert, in no apparent distress - Head Head exam: Present: atraumatic, normocephalic, normal inspection - Eye Eye exam: Present: PERRL, EOMI (Patient has no pain on extraocular movement), periorbital swelling (with mild to moderate erythema; no induration or fluctuance or streaking noted), other (No apparent crusting or discharge noted from the eye). Absent: scleral icterus, conjunctival injection, nystagmus, periorbital tenderness - Neck Neck exam: Present: normal inspection, full ROM - Respiratory Respiratory exam: Present: normal lung sounds bilaterally. Absent: respiratory distress, wheezes, rales, rhonchi - Cardiovascular Cardiovascular Exam: Present: regular rate, normal rhythm, normal heart sounds - Neurological Exam Neurological exam: Present: alert, oriented X3, CN II-XII intact, normal gait - Psychiatric Psychiatric exam: Present: normal affect, normal mood - Skin Skin exam: Present: intact ED Course Vital Signs 10/25/20 12:35 Temperature 99.1 F Pulse Rate 76 Respiratory 20 Rate Blood Pressure 150/90 [Right] O2 Sat by Pulse 100 Oximetry ED Medical Decision Making - Medical Decision Making Physical exam suggest that patient has periorbital cellulitis. Exam does not suggest she has orbital cellulitis. Case discussed with Dr. Lyubov Scanlon who also evaluated patient, see her note for detail. Patient instructed to continue the antibiotic eyedrops, and we will add oral antibiotics, Bactrim and Keflex as well as prednisone to her regimen. Informed patient that she has to give the medications time to work, she should start seeing improvement in the next few days. Recommend close follow-up with the internet specialist she was given yesterday your primary care doctor listed on her discharge instructions. Patient expressed understanding of instructions and agree with plan. Patient was stable at time of discharge. Critical care attestation.: If time is entered above; I have spent that time in minutes in the direct care of this critically ill patient, excluding procedure time. ED Disposition Clinical Impression: Periorbital cellulitis of right eye, Abrasion of eyelid, right Disposition: [id number] TO HOME OR SELFCARE Is pt being admited?: No Does the pt Need Aspirin: No Condition: Stable Instructions: Preseptal Cellulitis, Adult Additional Instructions: Continue using the gentamicin eye ointment. Start the Bactrim and the Keflex and the prednisone as prescribed. Continue applying cool compresses over the eye. Recommend that you follow-up with the internet specialist given to you on your discharge instructions from yesterday in the next 3 to 4 days. Return to the ER if your symptoms worsens especially if you start having pain with eyeball movement, and fever. Prescriptions: Sulfamethoxazole/Trimethoprim [Bactrim DS TAB] 1 each PO BID #14 tablet predniSONE [Deltasone] 50 mg PO QDAY #4 tab cephALEXin [Keflex] 500 mg PO Q6HR #40 capsule Referrals: YANDEL JEREZ MD [Staff Physician] - 3-5 Days Forms: Work/School Release Form(ED) Time of Disposition: 12:47
== END 2020-10-25 13:40 | disposition home or self-care (01) ==
LOC: ED 11:51
DX: S00.211A Abrasion of right eyelid and periocular area, initial encounter (principal); L03.213 Periorbital cellulitis; Z98.51 Tubal ligation status; Z98.890 Other specified postprocedural states; Z79.899 Other long term (current) drug therapy; X58.XXXA Exposure to other specified factors, initial encounter; Y93.89 Activity, other specified; Y92.89 Other specified places as the place of occurrence of the external cause; Y99.8 Other external cause status
CPT/HCPCS: 99282; J7512